=== PATIENT | female | born 1935 | race Caucasian/White ===

== ENCOUNTER 2020-09-25 08:42 | Outpatient (CLI) | payer MEDICARE, OTHER ==
--- NOTE | 2020-09-25 09:51 | MRI ---
MRI BRAIN WITH AND WITHOUT IV CONTRAST: HISTORY: An 84-year-old female with TIA. COMPARISON: None. FINDINGS: No restricted diffusion is seen. There is mild cortical atrophy. The ventricular size is appropriat e and the basilar cisterns are patent. There are foci of T2 prolongation in the periventricular whit e matter consistent with chronic small-vessel ischemic disease. No evidence of infarct, hemorrhage, mass, midline shift, or abnormal extraaxial fluid collection is s een. No abnormal postcontrast enhancement is noted. There is minimal mucosal disease in the paranas al sinuses. IMPRESSION: Chronic changes. No evidence of acute intracranial process or mass. POS: AH
== END 2020-09-25 08:43 | disposition home or self-care (01) ==
LOC: BICMRI 08:42
PROVIDERS: ATTEND Specialist
DX: G45.9 Transient cerebral ischemic attack, unspecified (principal)
CPT/HCPCS: 70553; 82565